=== PATIENT | male | born 1980 | race Caucasian/White ===

== ENCOUNTER 2021-10-22 09:19 | Outpatient (CLI) | payer OTHER ==
[2021-10-24] MEDS ORDERED: VASOTEC5 MG PO (13:47)
== END 2021-10-22 09:29 | disposition home or self-care (01) ==
LOC: RAD 09:19
PROVIDERS: ATTEND Urology
DX: I11.9 Hypertensive heart disease without heart failure (principal); N20.0 Calculus of kidney; N20.1 Calculus of ureter

== ENCOUNTER 2021-10-26 09:55 | Day surgery (SDC) | payer OTHER ==
[~2021-10-26 09:55] MED LIST: VASOTEC5 MG PO
== END 2021-10-26 18:58 | disposition home or self-care (01) ==
LOC: CIR.AMB 09:55
PROVIDERS: ATTEND Urology
DX: N20.1 Calculus of ureter (principal); N13.5 Crossing vessel and stricture of ureter without hydronephrosis

== ENCOUNTER 2021-10-29 10:18 | Outpatient (CLI) | payer OTHER | END 2021-10-29 10:24 | disposition home or self-care (01) | LOC: RAD 10:18 | PROVIDERS: ATTEND Urology | DX: N20.1 Calculus of ureter (principal) ==